=== PATIENT | female | born 1980 | race Caucasian/White ===

== ENCOUNTER 2023-11-23 12:52 | Emergency (ER) | payer OTHER, SELFPAY ==
--- NOTE | ~2023-11-23 | US_ITS ---
EXAMINATION: US venous doppler UE DATE: 11/23/2023 14:28 INDICATION: Left upper limb swelling. TECHNIQUE: Grayscale ultrasound images without and with compression and Doppler ultrasound images of the left upper extremity veins were obtained. COMPARISON: None. FINDINGS: The visualized portions of the left internal jugular vein, subclavian vein, axillary vein, brachial v eins, basilic vein, cephalic vein, radial vein, and ulnar vein are patent. There is hyperechoic subcu taneous fat medially measuring 8.2 x 1.2 x 2.6 cm. IMPRESSION: 1. No deep venous thrombosis. 2. Hyperechoic heterogeneous fat medially, likely inflammation. Reviewed, dictated and finalized at location E.
--- NOTE | ~2023-11-23 | XR_ITS ---
EXAMINATION: XR elbow LT min 3V DATE: 11/23/2023 14:00 INDICATION: Left elbow injury and pain. TECHNIQUE: 4 views of left elbow were obtained. COMPARISON: None. FINDINGS: Bone alignment is normal. No fracture. There is mild elbow joint osteoarthritis. No elbow j oint effusion. IMPRESSION: 1. Mild elbow joint osteoarthritis. Reviewed, dictated and finalized at location E.
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
[2023-11-23 13:44] VITALS: BP 138/80; PULSE 78; RESP 16; TEMP 36.8; O2SAT 100
[2023-11-23] MEDS: HYDROcodone/acetaminophen (*CRX) 5-325 MG TABLET 1 TAB PO (14:24)
[2023-11-23 15:28] VITALS: BP 128/80; PULSE 76; RESP 16; TEMP 36.6; O2SAT 98
== END 2023-11-23 15:30 | disposition home or self-care (01) ==
PROVIDERS: Emergency Provider Student in an Organized Health Care Education/Training Program
DX: S50.02XA Contusion of left elbow, initial encounter (principal); S40.012A Contusion of left shoulder, initial encounter; M19.022 Primary osteoarthritis, left elbow; V86.65XA Passenger of 3- or 4- wheeled all-terrain vehicle (ATV) injured in nontraffic accident, initial encounter
CPT/HCPCS: 73080; 93971; 99284; A9270